=== PATIENT | male | born 1955 | race Caucasian/White ===

== ENCOUNTER 2023-07-29 09:38 | Outpatient (CLI) | payer BC, SELFPAY ==
--- NOTE | 2023-07-29 10:24 | W.ANESCHARGE ---
Anesthesia Charges Start Date/Time Anesthesia Start Date: 07/29/23 Anesthesia Start Time: 10:52 Stop Date/Time Anesthesia Stop Date: 07/29/23 Anesthesia Stop Time: 11:23 Summary Extremes of Age - Over 70 or under 1: MDA
--- NOTE | 2023-07-29 11:27 | W.ANESCHARGE ---
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
== END 2023-07-29 09:39 | disposition home or self-care (01) ==
PROVIDERS: PCP Family Medicine; Visit Provider Internal Medicine Gastroenterology
DX: Z12.11 Encounter for screening for malignant neoplasm of colon (principal); K63.5 Polyp of colon; K57.30 Diverticulosis of large intestine without perforation or abscess without bleeding; Z86.010 Personal history of colon polyps
CPT/HCPCS: 00811; 45380; 88305; 99100; J2704